=== PATIENT | female | born 2000 | race African-American/Black ===

== ENCOUNTER → 2018-02-10 | Outpatient (CLI) | payer BC ==
--- NOTE | 2018-02-10 15:25 | DIAGNOSTIC IMAGING REPORT ---
LEFT UPPER EXTREMITY VENOUS DOPPLER ULTRASOUND CLINICAL HISTORY: LEFT ARM PAIN AND SWELLING COMPARISON STUDY: No previous studies for comparison. FINDINGS: The left internal jugular, subclavian, axillary, basilic, brachial and radial, ulnar and cephalic veins are patent. There is no venous thrombus within the left upper extremity. IMPRESSION: No deep venous thrombus within the left upper extremity. Electronically signed by: Hipolito Gilliam M.D. 02/10/2018 3:23 PM Dictated Date/Time: 02/10/2018 3:23 PM
== END | disposition home or self-care (01) ==
LOC: C.ULTR 14:25
PROVIDERS: ATTEND Physician Assistant
DX: M79.89 Other specified soft tissue disorders (principal)